=== PATIENT | male | born 1935 | race American Indian/Alaskan Native ===

== ENCOUNTER 2019-11-28 23:00 | Emergency (ER) | payer MEDICARE, MEDICAID ==
--- NOTE | 2019-11-28 23:30 | EDM.PDOC ---
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 He can't tell me exactly when or where this occurred. [place] staff told us they found him on the floor after an unwitnessed fall. Patient has been in [place] for about 2 months after approximately [address] [facility] after an ischemic stroke followed by a subdural hematoma. He cannot take blood thinners now. ED ROS GENERAL - Review of Systems Review Of Systems: Unable To Obtain (thorough ROS not possible due to dementia but ruled out what we could with observation and exam) Reason Not Obtained: dementia ED EXAM, HEAD INJURY - Physical Exam Exam: See Below Exam Limited By: Altered Mental Status (dementia) General Appearance: Alert, No Apparent Distress Head: Scalp Hematoma. No: Scalp Lacerations, Scalp Abrasions, Scalp Ecchymosis , Active Bleeding, Thomas's Sign, Flap, Facial Abrasions, Facial Ecchymosis, Facial Lacerations, Facial Swelling, Sinus Tenderness, Facial Tenderness, Raccoon Eyes Nexus Criteria: No: Posterior, Midline Cervical Tenderness, Evidence of Intoxication, Altered Level of Consciousness, Focal Neurological Deficit, Painful Distraction Injuries Eyes: Bilateral Eye: EOMI, Normal Inspection, PERRL Ears: Normal External Exam, Hearing Grossly Normal Nose: Normal Inspection, No Blood Throat/Mouth: Normal Inspection, Normal Lips, Normal Voice, No Airway Compromise Neck: Non-Tender, Full Range of Motion, Normal Alignment, Normal Inspection. No : Paraspinous Muscle Tender, Spinous Processes Tender, Tenderness, Tender Lateral, Tender Midline Respiratory: No Respiratory Distress, Lungs Clear, Normal Breath Sounds, No Accessory Muscle Use Cardiovascular: Regular Rate, Rhythm, No Murmur GI/Abdominal Exam: Normal Bowel Sounds, Soft, Non-Tender, No Organomegaly, No Distention Back Exam: Normal Inspection Extremities: Normal Inspection, Normal Range of Motion (PROM of bilat UE/LE reveals no evidence of fracture or pain) Neurologic: No Motor/Sensory Deficits, Alert, Normal Mood/Affect. No: Oriented x 3 (chronic; at baseline based on available information) Skin: Normal Color, Warm/Dry Course - Orders/Labs/Meds Orders: Active Orders 24 hr Category Date Time Status Head wo Cont [CT] Stat Exams 11/28/19 23:16 Ordered - Re-Assessments/Exams Free Text/Narrative Re-Assessment/Exam: 11/29/19 01:[address] shows no fractures, intracranial bleeding or other acute pathology. Patient was discharged back to [place] in stable condition. Departure - Departure Time of Disposition: 01:53 Disposition: DC/Tfer to SNF 03 Condition: Fair Clinical Impression: Hematoma of frontal scalp Qualifiers: Encounter type: initial encounter Qualified Code(s): S00.03XA - Contusion of scalp, initial encounter - Discharge Information Referrals: Lesly Sandoval MD [Primary Care Provider] - Additional Instructions: Resume previous medications and care. Follow up with PCP if any problems as needed. - My Orders Last 24 Hours: My Active Orders 11/28/19 23:16 Head wo Cont [CT] Stat - Assessment/Plan Last 24 Hours: My Active Orders 11/28/19 23:16 Head wo Cont [CT] Stat
--- NOTE | 2019-11-29 09:06 | CT ---
[id number] CT/CT Head WO IV EXAM: CT Head WO IV CLINICAL DATA: FALL, FRONTAL HEMATOMA COMPARISON STUDY: None FINDINGS: No intracranial hemorrhage, extra-axial fluid collection, mass, or acute ischemia. Encephalomalacia within the left frontal lobe consistent with old infarct. Generalized parenchymal atrophy with scattered areas of nonspecific white matter disease, commonly seen as sequela of chronic microvascular ischemia. Left frontal scalp hematoma without underlying calvarial fracture. Paranasal sinuses and mastoid air cells are clear. IMPRESSION: No acute intracranial findings. Amaury Fuentes DO 11/29/19 0905 Thank you for allowing us to participate in the care of your patient.
== END 2019-11-29 01:10 ==
LOC: KA.ED 23:00
DX: S00.03XA Contusion of scalp, initial encounter (principal); W19.XXXA Unspecified fall, initial encounter
CPT/HCPCS: 70450; 99283; 99284-25